=== PATIENT | female | born 1975 | race Asian ===

== ENCOUNTER 2021-06-25 01:20 | Emergency (ER) | payer MEDICAID ==
[~2021-06-25] VITALS: Ht 165.1 cm; Wt 83.9 kg
[2021-06-25 02:28] LABS: Urine Bacteria NONE SEEN /hpf (None Seen); Urine Blood 3+ /uL (Negative); Urine Mucus FEW (None Seen); Urine Specific Gravity 1.007 (1.001-1.035); Urine WBC 143 /hpf (0 - 5); Urine WBC Clumps PRESENT /hpf (None Seen)
[2021-06-25 04:14] VITALS: BP 144/86
[2021-06-25] MEDS ORDERED: cefTRIAXone SOD 1,000 MG VL IM ONE (04:15)
[2021-06-25] MEDS ORDERED: SODIUM CHLORIDE 0.9% 1,000 ML IV ONE (04:45)
== END 2021-06-25 06:35 | disposition home or self-care (01) ==
LOC: ER 01:20
DX: N39.0 Urinary tract infection, site not specified (principal); E11.65 Type 2 diabetes mellitus with hyperglycemia
CPT/HCPCS: 81001; 82962; 96360; 96372; 99283; J0696; J7030

== ENCOUNTER → 2021-09-03 | Outpatient (CLI) | payer MEDICAID ==
[~2021-09-03] VITALS: Ht 167.6 cm; Wt 81.6 kg
[2021-09-03] VITALS (7 sets, daily range): BP systolic 106–118; BP diastolic 62–76
[~2021-09-03] MED LIST: REGENERON 1200mg/250ml NS 250 ML IV ONE
== END | disposition home or self-care (01) ==
LOC: ER 15:00
PROVIDERS: ATTEND Internal Medicine
DX: U07.1 COVID-19 (principal); E11.9 Type 2 diabetes mellitus without complications; R50.9 Fever, unspecified; R53.83 Other fatigue; R11.0 Nausea
CPT/HCPCS: J7050; M0243; Q0244

== ENCOUNTER 2022-10-24 04:48 | Emergency (ER) | payer MEDICAID ==
[~2022-10-24] VITALS: Ht 162.6 cm; Wt 68.2 kg
[2022-10-24 06:28] LABS: Basophils # (auto) 0.1 10 ^3/uL (0-0.2); Basophils % (auto) 0.5 % (0.0-2.0); Eosinophils # (auto) 0.1 10 ^3/uL (0-0.8); Eosinophils % (auto) 1.2 % (0.0-7.0); Hematocrit 43.5 % (36.0-46.0); Hemoglobin 15.4 g/dL (12.2-16.2); Lymphocytes # (auto) 2.5 10 ^3/uL (0.4-5.4); Lymphocytes % (auto) 22.9 % (10.0-50.0); Mean Corpuscular Hemoglobin 29.1 pg (28.0-32.0); Mean Corpuscular Hgb Conc. 35.3 g/dL (32.0-36.0); Mean Corpuscular Volume 82.5 fL (80.0-100.0); Monocytes # (auto) 0.5 10 ^3/uL (0-1.3); Neutrophils # (auto) 7.6 10 ^3/uL (1.6-8.6); Neutrophils % (auto) 70.4 % (37.0-80.0); Nucleated Red Blood Cells % 0.4 %; Red Blood Cells 5.28 10^6/uL (4.0-5.20); Red Cell Distribution Width 13.1 % (11.8-14.3); White Blood Cell 10.8 10^3/uL (4.4-10.8)
[2022-10-24 06:45] LABS: Albumin 4.1 g/dL (3.4-5.0); BUN/Creatinine Ratio 19.7; Calcium 9.1 mg/dL (8.5-10.1); Potassium 3.9 mmol/L (3.5-5.1)
[2022-10-24 06:48] LABS: Bilirubin, Total 0.7 mg/dL (0.2-1.0); Total Protein 7.2 g/dL (6.4-8.2)
[2022-10-24 07:09] LABS: Urine Bacteria NONE SEEN /hpf (None Seen); Urine Blood 3+ /uL (Negative); Urine Specific Gravity 1.015 (1.001-1.035); Urine WBC 139 /hpf (0 - 5)
[2022-10-24] MEDS ORDERED: NITR-87 PO ×5 (07:56→08:36)
[2022-10-24] MEDS ORDERED: cefTRIAXone SOD 1,000 MG VL IM ONE (08:00)
[2022-10-24 08:20] VITALS: BP 124/98
== END 2022-10-24 07:57 | disposition home or self-care (01) ==
LOC: ER 04:48
DX: N39.0 Urinary tract infection, site not specified (principal); E11.65 Type 2 diabetes mellitus with hyperglycemia; E03.9 Hypothyroidism, unspecified; R10.2 Pelvic and perineal pain
CPT/HCPCS: 36415; 80053; 81001; 84702; 85025; 96372; 99283; J0696

== ENCOUNTER → 2024-10-11 | Day surgery (SDC) | payer MEDICAID ==
[2024-10-05 10:56] LABS: Urine Bacteria None Seen /hpf (None Seen)
[2024-10-05 11:07] LABS: Urine Blood Negative /uL (Negative); Urine Clarity Clear (Clear); Urine Color Colorless (Yellow); Urine Protein, UAD Negative (Negative); Urine Specific Gravity 1.004 (1.001-1.035); Urine Squamous Epithelial Cell FEW /hpf (<5); Urine Urobilinogen Normal (Negative); Urine WBC < 1 /HPF (0-5); Urine pH 5.5 (5.0-9.0)
[2024-10-05 11:12] LABS: Basophils # (auto) 0 10 ^3/uL (0-0.2); Basophils % (auto) 0.7 % (0.0-2.0); Eosinophils # (auto) 0.1 10 ^3/uL (0-0.8); Hematocrit 47.3 % (36.0-46.0); Hemoglobin 16.7 g/dL (12.2-16.2); Lymphocytes # (auto) 2.6 10 ^3/uL (0.4-5.4); Lymphocytes % (auto) 36.4 % (10.0-50.0); Mean Corpuscular Hemoglobin 30.3 pg (28.0-32.0); Mean Corpuscular Hgb Conc. 35.2 g/dL (32.0-36.0); Monocytes # (auto) 0.4 10 ^3/uL (0-1.3); Monocytes % (auto) 5.1 % (0.0-12.0); Neutrophils % (auto) 55.8 % (37.0-80.0); Nucleated Red Blood Cells % 0.1 %; Platelet Count (auto) 316 10^3/uL (140-450); Red Cell Distribution Width 12.5 % (11.8-14.3); White Blood Cell 7.2 10^3/uL (4.4-10.8)
[2024-10-05 11:23] LABS: INR 0.92 (0.9-1.15); Partial Thromboplastin Time 25.9 SEC (24.5-34.5); Prothrombin Time 9.8 sec (9.3-11.8)
[2024-10-05 12:07] LABS: Alanine Aminotransferase 12 U/L (7-40); Anion Gap 10 (5-15); Bilirubin, Total 0.8 mg/dL (0.2-1.0); Blood Urea Nitrogen 14 mg/dL (9-23); Carbon Dioxide 27 mmol/L (20-31); Chloride 98 mmol/L (98-107); Total Protein 7.8 g/dL (5.7-8.2)
[2024-10-05 12:08] LABS: Albumin 5.3 g/dL (3.2-4.8); Alkaline Phosphatase 118 U/L (46-116); Aspartate Aminotransferase 10 U/L (13-40); Calcium 10.8 mg/dL (8.7-10.4); Glucose 254 mg/dL (74-106); Sodium 135 mmol/L (136-145)
[2024-10-05 12:14] LABS: BUN/Creatinine Ratio 16.5 (10.0-20.0)
[~2024-10-11] VITALS: Ht 165.1 cm; Wt 63.5 kg
[~2024-10-11] MED LIST changes: +ACAR25TA PO; +ATOR20TA PO; +GLIP10TA9 PO; +INSLISPI SC; +INSU100I33 SC; +METF-489 PO; +PANT40TA2 PO; -REGENERON 1200mg/250ml NS 250 ML IV ONE; +SEMA2INJ3 SC
[2024-10-11 09:15] VITALS: BP 117/75; PULSE 84; RESP 16; TEMP 97.2; O2SAT 98
== END | disposition home or self-care (01) ==
LOC: GI 07:54
PROVIDERS: ATTEND Internal Medicine Gastroenterology
DX: R13.10 Dysphagia, unspecified (principal); Z53.8 Procedure and treatment not carried out for other reasons; E11.9 Type 2 diabetes mellitus without complications; E03.9 Hypothyroidism, unspecified; Z79.4 Long term (current) use of insulin
CPT/HCPCS: 36415; 80053; 81001; 82962; 84702; 85025; 85610; 85730

== ENCOUNTER 2024-12-04 13:42 | Inpatient (IN) | payer MEDICAID ==
[~2024-12-04] VITALS: Ht 165.1 cm; Wt 65.0 kg
--- NOTE | 2024-12-04 15:37 | ED.PDOC ---
History of Present Illness HPI Comments 49 year old female presents to the ED with a chief complaint of generalized weakness onset today. Patient states she woke up today experiencing generalized weakness, nausea, vomiting, bright yellow. Patient checked BG, was 287. She has not been able to eat or drink due to symptoms. PMHx DM. Denies chest pain, shortness of breath, diarrhea, abdominal pain, dysuria, hematuria. No other symptoms or modifying factors present at this time. Chief Complaint: General Weakness Time Seen by MD: 15:30 Primary Care Provider: [facility] Reviewed Notes: Medications, Allergies Allergies: Coded Allergies: NO KNOWN ALLERGIES (Unverified , 06/25/21) Home Meds Reported Medications Atorvastatin Calcium (Lipitor) 20 Mg Tab, 20 MG PO HS, TAB 10/05/24 Acarbose (Acarbose) 25 Mg Tab, 15 MG PO TID, TAB 10/05/24 Metformin Hydrochloride (METFORMIN HCL ER) 500 Mg Tab, 500 MG PO HS, TAB 10/05/24 Glipizide (Glipizide) 10 Mg Tab, 10 MG PO BID, TAB 10/05/24 Semaglutide (Ozempic) 2 Mg/3 Ml Inj, 2 MG SC QWEEKLY, INJ 10/05/24 Insulin Degludec (Tresiba) 100 Unit/Ml Inj, 46 UNIT SC HS, INJ 10/05/24 Insulin Lispro (Human) (Humalog) 100 Unit/Ml Inj, 15 UNIT SC TID, INJ 10/05/24 Pantoprazole Sodium Sesquihydr (Protonix) 40 Mg Tab, 40 MG PO DAILY, #30 TAB 10/05/24 Information Source: Patient, Spouse Mode of Arrival: Ambulatory Severity: Moderate Timing: Hours Duration: Since onset Prehospital treatment: None Past Medical History PAST MEDICAL HISTORY: DM, Thyroid, UTI'S Surgical History: Denies all surgeries [employer] ATTENDANT History: Denies all [employer]ATION ATTENDANT Hx Family History Family History: Unknown Social History Smoker: Non-Smoker Alcohol: Denies ETOH Use Drugs: Denies Drug Use Lives In: Home Constitutional: reports: weakness; denies: chills, diaphoresis, fatigue, fever, malaise, sweats, others EENTM: denies: blurred vision, double vision, ear bleeding, ear discharge, ear drainage, ear pain, ear ringing, eye pain, eye redness, hearing loss, mouth pain, mouth swelling, nasal discharge, nose bleeding, nose congestion, nose pain, photophobia, tearing, throat pain, throat swelling, voice changes, others Respiratory: denies: cough, hemoptysis, orthopnea, SOB at rest, shortness of breath, SOB with excertion, stridor, wheezing, others Cardiovascular: denies: chest pain, dizzy spells, diaphoresis, Dyspnea on exertion, edema, irregular heart beat, left arm pain, lightheadedness, palpitations, PND, syncope, others Gastrointestinal: reports: nausea, vomiting; denies: abdomen distended, abdominal pain, blood streaked bowels, constipated, diarrhea, dysphagia, difficulty swallowing, hematemesis, melena, poor appetite, poor fluid intake, rectal bleeding, rectal pain, others Genitourinary: denies: abnormal vagina bleeding, burning, dyspareunia, dysuria, flank pain, frequency, hematuria, incontinence, pain, , vagina discharge, urgency, others Neurological: reports: dizziness, weakness; denies: fainting, headache, left sided numbness, left sided weakness, numbness, paresthesia, pre-existing deficit, right sided numbness, right sided weakness, seizure, speech problems, tingling, tremors, others Musculoskeletal: denies: back pain, gout, joint pain, joint swelling, muscle pain, muscle stiffness, neck pain, others Integumetry: denies: bruises, change in color, change in hair/nails, dryness, laceration, lesions, lumps, rash, wounds, others Allergic/Immunocompromised: denies: Difficulty Healing, Frequent Infections, Hives, Itching, others Hematologic/Lymphatic: denies: anemia, blood clots, easy bleeding, easy bruising, swollen glands, others Endocrine: denies: excessive hunger, excessive sweating, excessive thirst, excessive urination, flushing, intolerance to cold, intolerance to heat, unexplained weight gain, unexplained weight loss, others Psychiatric: denies: anxiety, bipolar disorder, depression, hopeless, panic disorder, schizophrenia, sleepless, suicidal, others All Other Systems: Reviewed and Negative Physical Exam General Appearance: No Apparent Distress, Normal HEENT: Normal ENT Inspection, Pharynx Normal, TMs Normal Neck: Full Range of Motion, Non-Tender, Normal, Normal Inspection Respiratory: Chest Non-Tender, Lungs Clear, No Accessory Muscle Use, No Re spiratory Distress, Normal Breath Sounds Cardiovascular: No Edema, No JVD, No Murmur, No Gallop, Normal Peripheral Pulses, Regular Rate/Rhythm Breast Exam: Deferred Gastrointestinal: No Organomegaly, Non Tender, No Pulsatile Mass, Normal Bowel Sounds, Soft Genitalia: Deferred Pelvic: Deferred Rectal: Deferred Extremities: No calf tenderness, Normal capillary refill, Normal inspection, Normal range of motion, Non-tender, No pedal edema Musculoskeletal : Apperance: Normal Neurologic: Alert, bee worker II-XII nml as Tested, No Motor Deficits, Normal Affect, Normal Mood, No Sensory Deficits Cerebellar Function: Normal Reflexes: Normal Skin: Dry, Normal Color, Warm Lymphatic: No Adenopathy Was a procedure done? Was a procedure done?: No Differential Dx Considerations may include: DKA, electrolyte abnormalities, viral syndrome X-Ray, Labs, Meds, VS Vital Signs Date Time Temp Pulse Resp B/P (MAP) Pulse Ox O2 Delivery O2 Flow Rate FiO2 12/04/24 18:07 105 17 95 Room Air* 0 21 12/04/24 17:14 97.9 105 17 119/72 (88) 95 97.9 12/04/24 16:00 69 12/04/24 14:21 97.7 122 14 108/79 (89) 99 97.7 Lab Test 12/04/24 17:29 12/04/24 17:28 12/04/24 15:51 Range/Units POC Glucose 495 *H 454 *H 70-106 mg/dl White Blood Count 17.0 H 4.4-10.8 10^3/uL Red Blood Count 6.08 H 4.0-5.20 10^6/uL Hemoglobin 17.6 H 12.2-16.2 g/dL Hematocrit 53.3 H 36.0-46.0 % Mean Corpuscular Volume 87.7 80.0-100.0 fL Mean Corpuscular Hemoglobin 29.0 28.0-32.0 pg Mean Corpuscular Hemoglobin Concent 33.1 32.0-36.0 g/dL Red Cell Distribution Width 12.6 11.8-14.3 % Platelet Count 365 140-450 10^3/uL Mean Platelet Volume 9.7 6.9-10.8 fL Neutrophils (%) (Auto) 92.2 H 37.0-80.0 % Lymphocytes (%) (Auto) 5.3 L 10.0-50.0 % Monocytes (%) (Auto) 2.0 0.0-12.0 % Eosinophils (%) (Auto) 0.0 0.0-7.0 % Basophils (%) (Auto) 0.5 0.0-2.0 % Neutrophils # (Auto) 15.6 H 1.6-8.6 10 ^3/uL Lymphocytes # (Auto) 0.9 0.4-5.4 10 ^3/uL Monocytes # (Auto) 0.3 0-1.3 10 ^3/uL Eosinophils # (Auto) 0 0-0.8 10 ^3/uL Basophils # (Auto) 0.1 0-0.2 10 ^3/uL Nucleated Red Blood Cells 0.2 % Sodium Level 136 136-145 mmol/L Potassium Level 5.6 *H 3.5-5.1 mmol/L Chloride Level 99 98-107 mmol/L Carbon Dioxide Level 18 L 20-31 mmol/L Anion Gap 19 H 5-15 Blood Urea Nitrogen 20 9-23 mg/dL Creatinine 1.25 H 0.550-1.02 mg/dL Glomerular Filtration Rate Calc 52 >90 mL/min BUN/Creatinine Ratio 16.0 10.0-20.0 Serum Glucose 474 *H 74-106 mg/dL Lactic Acid Level 2.8 *H 0.4-2.0 mmol/L Calcium Level 11.3 H 8.7-10.4 mg/dL Total Bilirubin 1.0 0.2-1.0 mg/dL Aspartate Amino Transferase (AST) 13 13-40 U/L Alanine Aminotransferase (ALT) 19 7-40 U/L Alkaline Phosphatase 145 H 46-116 U/L Total Protein 8.8 H 5.7-8.2 g/dL Albumin 5.8 H 3.2-4.8 g/dL Lipase 31 12-53 U/L Current Medications Medications (Trade) Dose Ordered Sig/Esdras Route Start Time Stop Time Status Last Admin Sodium Chloride 1,000 ml @ 1,000 mls/hr Q1H ONCE IV 12/04/24 16:45 12/04/24 17:44 DC 12/04/24 16:45 Insulin Human Regular (InsuLIN R) 10 units ONCE ONCE IV 12/04/24 16:45 4/1/25 16:59 DC 12/04/24 17:32 Time of 1ST Reevaluation: 16:00 Reevaluation 1ST: Unchanged Patient Education/Counseling: Diagnosis, Treatment, Prognosis Family Education/Counseling: Diagnosis, Treatment, Prognosis Departure 1 Departure Time of Disposition: 18:12 (Patient with DKA. We will start the protocol and admit patient for further workup) Impression: Primary Impression: Diabetic ketoacidosis Qualified Codes: E11.10 - Type 2 diabetes mellitus with ketoacidosis without coma Additional Impressions: Uncontrolled diabetes mellitus Qualified Codes: E11.65 - Type 2 diabetes mellitus with hyperglycemia Generalized weakness Disposition: 09 ADMITTED INPATIENT Admit to: ICU Condition: Critical Critical Care Note Critical Care Time?: Yes Critical care comment: DKA Authorized and Performed by: Halina Wilcox MD Total critical care time: Approximately 38 minutes Due to a high probability of clinically significant, life threatening deterioration, the patient required my highest level of preparedness to intervene emergently and I personally spent this critical care time directly and personally managing the patient. This critical care time included obtaining a history; examining the patient; pulse oximetry; ordering and review of studies; arranging urgent treatment with development of a management plan; evaluation of patient's response to treatment; frequent reassessment; and, discussions with other providers. This critical care time was performed to assess and manage the high probability of imminent, life-threatening deterioration that could result in multi-organ failure. It was exclusive of separately billable procedures and treating other patients and teaching time. Please see my other sections and the rest of the note for further information on patient assessment and treatment. Stability Stability form required: No I personally scribed for HALINA WILCOX MD ([email or web address]) on 12/04/24 at 15:37. Electronically submitted by Elisa Jacob ([email or web address]). HALINA WILCOX MD Dec 04, 2024 15:37
[2024-12-04] MEDS ORDERED: SODIUM CHLORIDE 0.9% 2,000 ML IV ONE (15:45)
[2024-12-04 16:12] LABS: Basophils # (auto) 0.1 10 ^3/uL (0-0.2); Eosinophils # (auto) 0 10 ^3/uL (0-0.8); Hematocrit 53.3 % (36.0-46.0); Hemoglobin 17.6 g/dL (12.2-16.2); Lymphocytes # (auto) 0.9 10 ^3/uL (0.4-5.4); Lymphocytes % (auto) 5.3 % (10.0-50.0)
[2024-12-04 16:13] LABS: Basophils % (auto) 0.5 % (0.0-2.0); Mean Corpuscular Hgb Conc. 33.1 g/dL (32.0-36.0); Mean Corpuscular Volume 87.7 fL (80.0-100.0); Monocytes # (auto) 0.3 10 ^3/uL (0-1.3); Neutrophils # (auto) 15.6 10 ^3/uL (1.6-8.6); Neutrophils % (auto) 92.2 % (37.0-80.0); Nucleated Red Blood Cells % 0.2 %; Platelet Count (auto) 365 10^3/uL (140-450); Red Blood Cells 6.08 10^6/uL (4.0-5.20); Red Cell Distribution Width 12.6 % (11.8-14.3)
[2024-12-04 16:23] LABS: Alanine Aminotransferase 19 U/L (7-40); Anion Gap 19 (5-15); Aspartate Aminotransferase 13 U/L (13-40); Blood Urea Nitrogen 20 mg/dL (9-23); Chloride 99 mmol/L (98-107)
[2024-12-04 16:33] LABS: Albumin 5.8 g/dL (3.2-4.8); Alkaline Phosphatase 145 U/L (46-116); Calcium 11.3 mg/dL (8.7-10.4); Carbon Dioxide 18 mmol/L (20-31); Sodium 136 mmol/L (136-145); Total Protein 8.8 g/dL (5.7-8.2)
[2024-12-04 16:38] LABS: Glucose 474 mg/dL (74-106); Lactic Acid w/Reflex 2.8 mmol/L (0.4-2.0); Potassium 5.6 mmol/L (3.5-5.1)
[2024-12-04] MEDS: SODIUM CHLORIDE 0.9% 1,000 ML IV ONE (16:45)
[2024-12-04 16:49] LABS: Lipase 31 U/L (12-53)
[2024-12-04] MEDS: InsuLIN REG 1unit/0.01ml Soln (100units/ml) IV ONE (17:32)
[2024-12-04] MEDS: ONDANSETRON HCL 4 MG/2 ML VIAL IV ONE (17:33)
[2024-12-04 18:07] VITALS: PULSE 105; RESP 17; O2SAT 95
[2024-12-04] MEDS ORDERED: DEXTROSE (50%) 50ML SYRG IV PRN (18:15)
--- NOTE | 2024-12-04 18:31 | DVH ---
CHEST RADIOGRAPH Indication: vomiting Technique: Single frontal view of the chest was obtained Comparison: None FINDINGS: Lines and Tubes: None Lungs: No focal consolidation. Pleura: No effusion. No pneumothorax. Cardiomediastinal contours: Unremarkable Bones: No acute osseous abnormality. IMPRESSION: 1. No acute cardiopulmonary disease.
--- NOTE | 2024-12-04 18:31 | DVH ---
Procedure: CT CT AB PEL WO CON-NO ORAL OR IV 12/04/2024 05:46 PM Indication: abdominal pain Comparison Study: None Technique: Axial images were obtained and reformatted in coronal and sagittal planes. All CT scans at this medical facility are performed using dose modulation techniques as appropriate to a performed e xam including the following: Automated exposure control was utilized; adjustment of the MA and/or KV according to patient size; and use of iterative reconstruction technique. CT Dose: CTDI volume is 6.3 3 mGy. Dose-length product is 308.69 mGy*cm FINDINGS: Lower Chest: Unremarkable. Hepatobiliary: Unremarkable. Spleen: Unremarkable. Pancreas: Unremarkable. Adrenal Glands: Unremarkable. tract: The kidneys are normal in size bilaterally without hydronephrosis . A 2 mm nonobstructing stone noted in the lower pole of the right kidney. The urinary bladder is unremarkable. GI tract: The stomach is grossly normal in appearance. No evidence of small bowel obstruction. Mild f ecal retention throughout the large bowel. The appendix is normal. Lymphatics: No mesenteric, retroperitoneal or periportal lymphadenopathy. Vasculature: The abdominal aorta is normal in caliber. Pelvic Organs: The IUD appears satisfactory position. Bones/soft tissues: No acute abnormality. Other: None. IMPRESSION: 1. No CT evidence of acute abnormality. 2. Mild fecal retention.
[2024-12-04] MEDS: INSULIN LANTUS (GLARGINE) 1 /0.01ml (100units/ml) SC ONE (18:36)
[2024-12-04] MEDS: INSULIN DRIP 100 UNIT/100ML 100 ML IV SCH (18:37)
[2024-12-04] MEDS: SODIUM CHLORIDE 0.9% 1,000 ML IV SCH ×2 (18:53→22:23)
[2024-12-04 19:10] LABS: Chloride 105 mmol/L (98-107); Potassium 4.4 mmol/L (3.5-5.1); Sodium 140 mmol/L (136-145)
[2024-12-04 19:11] LABS: Anion Gap 17 (5-15)
[2024-12-04 19:16] LABS: BUN/Creatinine Ratio 20.5 (10.0-20.0)
[2024-12-04 19:17] LABS: Magnesium 2.4 mg/dL (1.6-2.6)
[2024-12-04 19:19] LABS: Phosphorus 3.2 mg/dL (2.4-5.1)
[2024-12-04] MEDS: ACCU-CHEK COMFORT CURVE STRIP VI SCH (19:30)
[2024-12-04 19:45] LABS: Blood Urea Nitrogen 24 mg/dL (9-23); Calcium 10.9 mg/dL (8.7-10.4); Carbon Dioxide 18 mmol/L (20-31)
[2024-12-04 19:47] LABS: Glucose 408 mg/dL (74-106)
[2024-12-04 21:58] LABS: Urine Bacteria None Seen /hpf (None Seen)
[2024-12-04 22:25] LABS: Urine Blood Negative /uL (Negative); Urine Clarity Clear (Clear); Urine Color Light-Yellow (Yellow); Urine Protein, UAD 1+ (Negative); Urine Specific Gravity 1.031 (1.001-1.035); Urine Squamous Epithelial Cell FEW /hpf (<5); Urine Urobilinogen Normal (Negative); Urine WBC 4 /HPF (0-5); Urine pH 5.5 (5.0-9.0)
[2024-12-05] VITALS (10 sets, daily range): BP systolic 109–140; BP diastolic 65–84; PULSE 69–102; RESP 16–19; TEMP 97.5–98.2; O2SAT 92–100
[2024-12-05] MEDS: SODIUM CHLORIDE 0.9% 1,000 ML IV SCH (00:08)
[2024-12-05 00:39] LABS: Potassium 3.8 mmol/L (3.5-5.1); Sodium 142 mmol/L (136-145)
[2024-12-05 00:40] LABS: Anion Gap 10 (5-15); Calcium 9.5 mg/dL (8.7-10.4)
[2024-12-05 00:45] LABS: Blood Urea Nitrogen 20 mg/dL (9-23)
[2024-12-05 00:56] LABS: Carbon Dioxide 18 mmol/L (20-31); Chloride 114 mmol/L (98-107); Glucose 233 mg/dL (74-106)
[2024-12-05] MEDS ORDERED: ONDANSETRON HCL 4 MG/2 ML VIAL IV PRN (02:00)
--- NOTE | 2024-12-05 02:19 | DVHHPRES ---
History of Present Illness Resident Creating Document: NEVAEH JACOB RESIDENT Reason for Visit: Nausea and vomiting History of Present Illness This is a 49-year-old female with a past medical history of diabetes mellitus type 2, hyperthyroidism ( Graves disease), recurrent UTI and GERD presenting to the ED today with a chief complaint of generalized weakness that started earlier yesterday. Patient states she woke up today experiencing generalized weakness, nausea, vomiting, bright yellow. She checked her blood sugar at home and it registered 287. She has not been able to eat or drink due to symptoms thus prompting her visit. Patient denied any chest pain, shortness of breath, dizz iness any palpitation, dysuria or hematuri, but mild abdominal discomfort. In the ED, her blood glucose was 474, ABG: showed metabolic acidosis and urine positive for ketones. PMHx diabetes mellitus type II, Graves disease, recurrent UTI and GERD Past surgical history: Left mastectomy Social history: Patient lives at home with family Family history noncontributory Past Medical History See HPI Past Surgical History See HPI Family History See HPI Review of Systems Review of Systems Constitutional: Denies fever no chills no feeling of malaise, better at time of my interaction HEENT: Denies headache, ear pain, ear discharges, conjunctivitis, nasal discharge throat pain Cardiovascular: Denies chest pain, palpitation, orthopnea, PND, or pedal edema Respiratory: Denies shortness of breat cough, sputum production, hemoptysis, GI: Denies abdominal pain, nausea, vomiting, diarrhea, hematemesis, hematochezia, : Denies frequency, urgency, hematuria,; mild lower abdominal pain Endocrine: Denies unintentional weight gain or weight loss, feeling of hot flashes, Christiano: Denies easy bruising, bleeding disorders, epistaxis Musculoskeletal: Denies joint pains, muscle aches Psych: No evidence of depression, jayson, suicidal ideation Allergies: Coded Allergies: NO KNOWN ALLERGIES (Unverified , 06/25/21) Medications Current Medications Medications Dose Ordered Sig/Esdras Route Start Time Stop Time Status Last Admin Dose Admin Sodium Chloride 1,000 ml @ 150 mls/hr Q6H40M IV 12/05/24 00:15 12/05/24 00:08 150 MLS/HR Insulin Human (Reg)/Sodium Chloride 100 ml @ 0.5 mls/hr Q24H IV 12/04/24 18:15 4/1/25 18:37 6 MLS/HR Dextrose 50 ml UD PRN IV 12/04/24 18:15 Diagnostic Test (Pha) 1 strip Q90MIN 12/04/24 19:30 12/05/24 01:26 1 STRIP Insulin Glargine 15 units DAILY SC 12/05/24 10:00 Exam Vital Signs Vital Signs Date Time Temp Pulse Resp B/P (MAP) Pulse Ox O2 Delivery O2 Flow Rate FiO2 12/05/24 00:03 102 16 98 Room Air* 0 21 12/05/24 00:00 98.4 145/85 (105) 98.4 Exam General Appearance: Alert, Oriented X3, Cooperative, No acute distress HEENT: Atraumatic, PERRLA, EOMI, Mucous membrane moist/pink Respiratory: Clear to auscultation, Normal air movement Chest: Regular rate, Normal S1, Normal S2, No murmurs, no chest wall tenderness; left breast mastectomy Abdominal: NO distention, no tenderness, bowel sounds present, no scars noted Extremities: No clubbing, No cyanosis, No edema, Normal pulses, No tenderness/swelling Skin: No rashes, No breakdown, No significant lesion Neuro: Normal gait, Normal speech, Strength at 5/5 X4 ext, Normal tone, Sensation intact, Cranial nerves 3-12 NL, Reflexes 2+ Psych/Mental Status: Mental status NL, Mood NL Labs/Xrays Labs Test 12/05/24 01:26 12/05/24 00:20 12/04/24 18:32 12/04/24 18:26 Range/Units POC Glucose 197 H 70-106 mg/dl Sodium Level 142 136-145 mmol/L Potassium Level 3.8 3.5-5.1 mmol/L Chloride Level 114 H 98-107 mmol/L Carbon Dioxide Level 18 L 20-31 mmol/L Anion Gap 10 5-15 Blood Urea Nitrogen 20 9-23 mg/dL Creatinine 0.74 # 0.550-1.02 mg/dL Glomerular Filtration Rate Calc 98 >90 mL/min BUN/Creatinine Ratio 27.0 H 10.0-20.0 Serum Glucose 233 H 74-106 mg/dL Calcium Level 9.5 8.7-10.4 mg/dL Serum Osmolality 326 H 278-298 mOsm/kg Phosphorus Level 3.2 2.4-5.1 mg/dL Magnesium Level 2.4 1.6-2.6 mg/dL Beta-Hydroxybutyric Acid > 4.500 H < 0.4 mmol/L Blood Gas Specimen Type Arterial Blood Gas Sample Site Right radial Blood Gas Patient Temperature 37.0 Arterial Blood Date Drawn [id number] Arterial Blood pH 7.326 L 7.350-7.450 Arterial Blood Partial Pressure CO2 27.5 L 32.0-45.0 mmHg Arterial Blood Partial Pressure O2 83.7 83.0-108.0 mmHg Arterial Blood HCO3 14.0 L 21.0-28.0 mmol/L Arterial Blood Oxygen Saturation 95.8 94.0-98.0 % Arterial Blood Base Excess -10.0 L -2.0-3.0 mmol/L Arterial Blood Oxyhemoglobin 94.3 94.0-98.0 % Arterial Blood Carboxyhemoglobin 1.0 0.5-1.5 % Arterial Blood Methemoglobin 0.6 0.0-1.5 % Barber Test Yes Blood Gas Total Hemoglobin 17.40 H 12.0-16.0 g/dL Blood Gas Modality Room air FiO2 % 21.0 Specimen Drawn By Lactic Acid Level 2.6 *H 0.4-2.0 mmol/L Test 12/04/24 15:51 12/04/24 13:59 Range/Units White Blood Count 17.0 H 4.4-10.8 10^3/uL Red Blood Count 6.08 H 4.0-5.20 10^6/uL Hemoglobin 17.6 H 12.2-16.2 g/dL Hematocrit 53.3 H 36.0-46.0 % Mean Corpuscular Volume 87.7 80.0-100.0 fL Mean Corpuscular Hemoglobin 29.0 28.0-32.0 pg Mean Corpuscular Hemoglobin Concent 33.1 32.0-36.0 g/dL Red Cell Distribution Width 12.6 11.8-14.3 % Platelet Count 365 140-450 10^3/uL Mean Platelet Volume 9.7 6.9-10.8 fL Neutrophils (%) (Auto) 92.2 H 37.0-80.0 % Lymphocytes (%) (Auto) 5.3 L 10.0-50.0 % Monocytes (%) (Auto) 2.0 0.0-12.0 % Eosinophils (%) (Auto) 0.0 0.0-7.0 % Basophils (%) (Auto) 0.5 0.0-2.0 % Neutrophils # (Auto) 15.6 H 1.6-8.6 10 ^3/uL Lymphocytes # (Auto) 0.9 0.4-5.4 10 ^3/uL Monocytes # (Auto) 0.3 0-1.3 10 ^3/uL Eosinophils # (Auto) 0 0-0.8 10 ^3/uL Basophils # (Auto) 0.1 0-0.2 10 ^3/uL Nucleated Red Blood Cells 0.2 % Total Bilirubin 1.0 0.2-1.0 mg/dL Aspartate Amino Transferase (AST) 13 13-40 U/L Alanine Aminotransferase (ALT) 19 7-40 U/L Alkaline Phosphatase 145 H 46-116 U/L Total Protein 8.8 H 5.7-8.2 g/dL Albumin 5.8 H 3.2-4.8 g/dL Lipase 31 12-53 U/L Urine Color Light-yellow Yellow Urine Clarity Clear Clear Urine pH 5.5 5.0-9.0 Urine Specific [place] 1.031 1.001-1.035 Urine Protein 1+ H Negative Urine Ketones 4+ H Negative Urine Blood Negative Negative /uL Urine Nitrite Negative Negative Urine Bilirubin Negative Negative Urine Urobilinogen Normal Negative mg/dL Urine Leukocyte Esterase Negative Negative /uL Urine RBC <1 0 - 4 /hpf Urine Microscopic WBC 4 0-5 /HPF Urine Squamous Epithelial Cells Few <5 /hpf Urine Bacteria None seen None Seen /hpf Urine Glucose 4+ H Normal mg/dL Assessment/Plan Assessment/Plan Assessment Diabetic ketoacidosis with hyperglycemia Possible SIRS Metabolic acidosis GISSEL due to the VMN Hypercalcemia Hyperkalemia History of Graves disease, has not been on medication for over a decade History of recurrent UTI History of GERD Plan Antibody ceftriaxone possible SIRS Anion gap corrected Monitor electrolytes and replace as needed Continue IV hydration, if or when serum glucose get to 250, begin feeding whiles bridging with Lantus over with insulin. Urinalysis seems clear no evidence of infection Give pantoprazole Diet: NPO DVT prophylaxis: Patient is young and mobile Goal of care discussed for more than 20 minutes: Full code Case and plan discussed with the miller Webb Plan discussed with: Patient Date of Service: Dec 05, 2024 Billing Provider: SANIYA WEBB MD Common Visit Codes: [id number] INP/OBS CARE (HIGH) NEVAEH JACOB RESIDENT Dec 05, 2024 02:19 SANIYA WEBB MD Dec 05, 2024 14:39
[2024-12-05 02:33] LABS: Basophils # (auto) 0 10 ^3/uL (0-0.2); Basophils % (auto) 0.3 % (0.0-2.0); Eosinophils # (auto) 0 10 ^3/uL (0-0.8); Hematocrit 41.7 % (36.0-46.0); Hemoglobin 14.3 g/dL (12.2-16.2); Lymphocytes # (auto) 1.2 10 ^3/uL (0.4-5.4); Lymphocytes % (auto) 8.8 % (10.0-50.0); Mean Corpuscular Hemoglobin 29.6 pg (28.0-32.0); Mean Corpuscular Hgb Conc. 34.3 g/dL (32.0-36.0); Mean Corpuscular Volume 86.2 fL (80.0-100.0); Monocytes % (auto) 6.9 % (0.0-12.0); Neutrophils # (auto) 11.9 10 ^3/uL (1.6-8.6); Nucleated Red Blood Cells % 0.1 %; Platelet Count (auto) 226 10^3/uL (140-450); Red Blood Cells 4.83 10^6/uL (4.0-5.20); Red Cell Distribution Width 12.5 % (11.8-14.3); White Blood Cell 14.2 10^3/uL (4.4-10.8)
[2024-12-05] MEDS: PANTOPRAZOLE 40 MG/10 ML VIAL INJ IV ONE (03:47)
[2024-12-05] MEDS ORDERED: DEXTROSE (50%) 50ML SYRG IV PRN (04:45)
[2024-12-05] MEDS: INSULIN LANTUS (GLARGINE) 1 /0.01ml (100units/ml) SC SCH ×2 (07:00→10:00)
[2024-12-05] MEDS: ACCU-CHEK COMFORT CURVE STRIP VI SCH (07:19)
[2024-12-05] MEDS: InsuLIN REG 1unit/0.01ml Soln (100units/ml) SC SCH ×2 (07:24→21:00)
[2024-12-05 09:03] LABS: Potassium 3.7 mmol/L (3.5-5.1); Sodium 142 mmol/L (136-145)
[2024-12-05 09:04] LABS: Anion Gap 11 (5-15); Calcium 9.8 mg/dL (8.7-10.4); Carbon Dioxide 20 mmol/L (20-31); Chloride 111 mmol/L (98-107)
[2024-12-05 09:09] LABS: BUN/Creatinine Ratio 30.3 (10.0-20.0)
[2024-12-05 09:20] LABS: Blood Urea Nitrogen 23 mg/dL (9-23); Glucose 239 mg/dL (74-106)
[2024-12-05 09:25] LABS: T3 Total 0.56 ng/mL (0.60-1.81)
[2024-12-05 09:27] LABS: Free T4 (Free Thyroxine) 1.47 ng/dL (0.89-1.76)
[2024-12-05] MEDS: D5W/LACTATED RINGERS 1,000 ML IV SCH (10:21)
[2024-12-05] MEDS: POTASSIUM CHLORIDE 20 MEQ, LIDOCAINE 1% (LOCAL ANESTH.) 2 ML in SODIUM CHL 0.9% 100 ML IV ONE (10:22)
--- NOTE | 2024-12-05 11:47 | DVHPNRES ---
Progress Note Date Seen: Dec 05, 2024 Resident Creating Document: BHAVIK HERNANDES RESIDENT Medical Necessity Reason Pt with a Central, PICC or Fol: No Subjective Review of Systems Otilio Au is a 49-year-old female with a PMH of type 2 DM, Graves disease, recurrent UTI, GERD presented to the ED with the chief complaints of nausea, vomiting on the day of admission. Patient reported on the day of admission she started having generalized weakness associated with the nausea, vomiting, dizziness and then she checked her blood glucose at home which is around 280 and she is unable to tolerate oral feeds, which prompted her to visit ED. on arrival to ED patient blood glucose was in 474, ABG showed metabolic acidosis with urine positive for ketones and diagnosed as DKA. on my assessment patient admits that she is not taking her insulin for past 2 weeks due to fear of weight gain. PMHx diabetes mellitus type II, Graves disease, recurrent UTI and GERD PSH: Left mastectomy Social history: Patient lives at home with family. Denies smoking, alcohol and other drug abuse Family history noncontributory Home medications: Glipizide, metformin, acarbose, insulin Humalog 16 units, Tresiba 46 units, Ozempic 20 units Allergies: No known allerg Patient seen and examined at the bedside. Patient reported improvement in her symptoms since admission, reported no new complaints except generalized weakness. Patient reports: Feels better Objective vital signs Vital Sign Date Time Temp Pulse Resp B/P (MAP) Pulse Ox O2 Delivery O2 Flow Rate FiO2 12/05/24 09:00 98.2 81 16 129/73 (91) 98 98.2 12/05/24 08:00 Room Air* 0 21 Total Intake and Output 12/04/24 12/04/24 12/05/24 15:00 23:00 07:00 Intake Total 2500 ml 850 ml Output Total 0 ml Balance 2500 ml 850 ml medications Current Medications Medications Dose Ordered Sig/Esdras Route Start Time Stop Time Status Last Admin Dose Admin Insulin Glargine 15 units DAILY SC 12/05/24 10:00 Ondansetron HCl 4 mg Q4HP PRN IV 12/05/24 02:00 Diagnostic Test (Pha) 1 strip ACHS 12/05/24 07:00 12/05/24 07:19 1 STRIP Insulin Human Regular HS SC 12/05/24 22:00 Insulin Human Regular AC SC 12/05/24 07:00 12/05/24 07:24 6 UNITS Dextrose 50 ml UD PRN IV 12/05/24 04:45 Insulin Glargine 10 units QAM SC 12/05/24 07:00 Dextrose/Lactated Ringer's 1,000 ml @ 150 mls/hr Q6H40M IV 12/05/24 06:45 12/05/24 10:21 150 MLS/HR Examination Pt is lying on bed General Appearance: Alert, Oriented X3, Cooperative, Not in acute distress HEENT: Atraumatic, Mucous membranes dry Respiratory: Clear to auscultation, Normal air movement, No added sounds Cardiovascular: Regular rate, Normal S1, Normal S2, No murmurs Abdominal: Active bowel sounds, Soft, no distention, no tenderness Extremities: No edema, Normal pulses, No tenderness/swelling Skin: No Significant rash, except past surgical scars Neuro: Normal speech, sensorimotor deficits none Psych/Mental Status: Mental status NL, Mood NL Nurse was there as sharperone during examination laboratory and microbiology Laboratory Tests 12/05/24 08:35 12/05/24 02:25 Test 12/05/24 08:35 Range/Units Serum Glucose 239 H 74-106 mg/dL Labs and/or images reviewed: Labs reviewed by me, Image(s) reviewed by me Problem List/Assessment/Plan Problem List/Assessment/Plan # ? SIRS from below with EOD # Uncontrolled type 2 DM with DKA # DKA- resolving # Medication nonnadherance # Metabolic acidosis from DKA # hyperkalemia and hypercalcemia # Dehydration - patient was initially given IVF and IV insulin as DKA protocol - closely monitored lab - Anion gap corrected - bridging with the Lantus - prophylactic Rocephin - initiate diabetic diet - given counseling regarding medication adherence for 17 minutes - blood cultures # GISSEL likely VMN - monitor lab - continue IVF # GERD - Protonix # History of Graves disease Protonix No need of Lovenox since patient is ambulatory Diabetic diet Goals of care discussed with the patient for more than 27 minutes: Full code status Case discussed with Dr. Bonilla, patient and nurse Plan discussed with: Patient My Orders My Orders Orders - BHAVIK HERNANDES RESIDENT Procedure Category Date Status Time Transfer Orders XFER 12/05/24 Transmitted 08:19 Date of Service: Dec 05, 2024 Billing Provider: SAHARA AYALA MD Common Visit Codes: [id number] INP/OBS CARE(HIGH) BHAVIK HERNANDES RESIDENT Dec 05, 2024 11:47 SAHARA AYALA MD Dec 06, 2024 00:15
[2024-12-05 13:54] LABS: Potassium 3.8 mmol/L (3.5-5.1); Sodium 141 mmol/L (136-145)
[2024-12-05 13:55] LABS: Anion Gap 12 (5-15); Calcium 9.7 mg/dL (8.7-10.4); Carbon Dioxide 21 mmol/L (20-31)
[2024-12-05 13:56] LABS: Chloride 108 mmol/L (98-107)
[2024-12-05 14:00] LABS: BUN/Creatinine Ratio 42.4 (10.0-20.0)
[2024-12-05 14:01] LABS: Blood Urea Nitrogen 28 mg/dL (9-23); Glucose 249 mg/dL (74-106)
[2024-12-06] VITALS (7 sets, daily range): BP systolic 113–131; BP diastolic 65–88; PULSE 75–90; RESP 17–19; TEMP 97.5–98.2; O2SAT 95–99
[2024-12-06 06:21] LABS: Basophils # (auto) 0.1 10 ^3/uL (0-0.2); Basophils % (auto) 0.6 % (0.0-2.0); Eosinophils # (auto) 0 10 ^3/uL (0-0.8); Eosinophils % (auto) 0.4 % (0.0-7.0); Hematocrit 40.7 % (36.0-46.0); Hemoglobin 14.1 g/dL (12.2-16.2); Lymphocytes # (auto) 2.1 10 ^3/uL (0.4-5.4); Lymphocytes % (auto) 19.2 % (10.0-50.0); Mean Corpuscular Hemoglobin 29.3 pg (28.0-32.0); Mean Corpuscular Hgb Conc. 34.7 g/dL (32.0-36.0); Mean Corpuscular Volume 84.5 fL (80.0-100.0); Monocytes # (auto) 0.8 10 ^3/uL (0-1.3); Monocytes % (auto) 7.1 % (0.0-12.0); Neutrophils # (auto) 7.8 10 ^3/uL (1.6-8.6); Neutrophils % (auto) 72.7 % (37.0-80.0); Platelet Count (auto) 169 10^3/uL (140-450); Red Blood Cells 4.82 10^6/uL (4.0-5.20); White Blood Cell 10.7 10^3/uL (4.4-10.8)
[2024-12-06 06:24] LABS: Alanine Aminotransferase 12 U/L (7-40); Albumin 4.1 g/dL (3.2-4.8); Alkaline Phosphatase 93 U/L (46-116); Anion Gap 9 (5-15); BUN/Creatinine Ratio 34.4 (10.0-20.0); Blood Urea Nitrogen 21 mg/dL (9-23); Calcium 9.7 mg/dL (8.7-10.4); Carbon Dioxide 23 mmol/L (20-31); Chloride 107 mmol/L (98-107); Magnesium 2.1 mg/dL (1.6-2.6); Potassium 3.8 mmol/L (3.5-5.1); Sodium 139 mmol/L (136-145); Total Protein 6.3 g/dL (5.7-8.2)
[2024-12-06 06:28] LABS: Aspartate Aminotransferase < 8 U/L (13-40); Glucose 250 mg/dL (74-106)
[2024-12-06] MEDS ORDERED: DEXTROSE (50%) 50ML SYRG IV PRN (10:30)
[2024-12-06] MEDS ORDERED: INSULIN LISPRO (HUMAN) 100 UNITS/ML ML SC SCH (11:30)
[2024-12-06] MEDS: ACCU-CHEK COMFORT CURVE STRIP VI SCH (11:33)
[2024-12-06] MEDS: INSULIN LISPRO (HUMAN) 100 UNITS/ML ML SC SCH (11:39)
[2024-12-06] MEDS: InsuLIN REG 1unit/0.01ml Soln (100units/ml) SC SCH (11:40)
--- NOTE | 2024-12-06 12:01 | DVHPNRES ---
Progress Note Date Seen: Dec 06, 2024 Resident Creating Document: BHAVIK HERNANDES RESIDENT Medical Necessity Reason Pt with a Central, PICC or Fol: No Subjective Review of Systems Otilio Au is a 49-year-old female with a PMH of type 2 DM, Graves disease, recurrent UTI, GERD presented to the ED with the chief complaints of nausea, vomiting on the day of admission. Patient seen and examined at the bedside. Patient reported improvement in her symptoms since admission, reported no new complaints except generalized weakness. Patient reports: No new complaints Objective vital signs Vital Sign Date Time Temp Pulse Resp B/P (MAP) Pulse Ox O2 Delivery O2 Flow Rate FiO2 12/06/24 08:51 97.9 83 17 113/67 (82) 99 97.9 12/05/24 20:00 Room Air* 0 21 Total Intake and Output 12/05/24 12/05/24 12/06/24 15:00 23:00 07:00 Intake Total 4400 ml 1420 ml Output Total 1800 ml Balance 2600 ml 1420 ml medications Current Medications Medications Dose Ordered Sig/Esdras Route Start Time Stop Time Status Last Admin Dose Admin Insulin Glargine 15 units DAILY SC 12/05/24 10:00 12/06/24 09:18 15 UNITS Ondansetron HCl 4 mg Q4HP PRN IV 12/05/24 02:00 Insulin Glargine 10 units QAM SC 12/05/24 07:00 12/06/24 06:16 10 UNITS Dextrose/Lactated Ringer's 1,000 ml @ 150 mls/hr [id number] IV 12/05/24 06:45 12/06/24 03:10 150 MLS/HR Diagnostic Test (Pha) 1 strip ACHS 12/06/24 11:30 12/06/24 11:33 1 STRIP Insulin Human Regular ACHS SC 12/06/24 11:30 12/06/24 11:40 8 UNITS Dextrose 50 ml UD PRN IV 12/06/24 10:30 Insulin Human Lispro 14 units AC SC 12/06/24 11:30 12/06/24 11:39 14 UNITS Examination Pt is lying on bed General Appearance: Alert, Oriented X3, Cooperative, Not in acute distress HEENT: Atraumatic, Mucous membranes dry Respiratory: Clear to auscultation, Normal air movement, No added sounds Cardiovascular: Regular rate, Normal S1, Normal S2, No murmurs Abdominal: Active bowel sounds, Soft, no distention, no tenderness Extremities: No edema, Normal pulses, No tenderness/swelling Skin: No Significant rash, except past surgical scars Neuro: Normal speech, sensorimotor deficits none Psych/Mental Status: Mental status NL, Mood NL Nurse was there as sharperone during examination laboratory and microbiology Laboratory Tests 12/06/24 05:37 Test 12/06/24 05:37 Range/Units Serum Glucose 250 H 74-106 mg/dL Microbiology Date/Time Source Procedure Growth Status 12/05/24 02:25 Blood Blood Culture - Preliminary NO GROWTH AFTER 24 HOURS OF INCUBATION. Resulted Labs and/or images reviewed: Labs reviewed by me, Image(s) reviewed by me Problem List/Assessment/Plan Problem List/Assessment/Plan # ? SIRS from below with EOD # Uncontrolled type 2 DM with DKA # DKA- resolving # Medication nonnadherance # Metabolic acidosis from DKA # hyperkalemia and hypercalcemia # Dehydration - patient was initially given IVF and IV insulin as DKA protocol - closely monitored lab - Anion gap corrected - Currently Lantus and added lispro 14 units - prophylactic Rocephin - initiate diabetic diet - given counseling regarding medication adherence for 17 minutes - blood cultures # GISSEL likely VMN - monitor lab - continue IVF # GERD - Protonix # History of Graves disease Protonix No need of Lovenox since patient is ambulatory Diabetic diet Goals of care discussed with the patient for more than 27 minutes: Full code status Case discussed with Dr. Bonilla, patient and nurse Plan discussed with: Patient My Orders My Orders Orders - BHAVIK HERNANDES RESIDENT Procedure Category Date Status Time Consult For Nutrition NOURISH 12/06/24 Transmitted 10:27 Glucose Blood PHA 12/06/24 In Process (Accu-Chek Comfort 11:30 Insulin R (Human) PHA 12/06/24 In Process (Insulin R) 11:30 Dextrose 50% Syringe PHA 12/06/24 In Process 10:30 Transfer Orders XFER 12/06/24 Transmitted 10:29 Insulin Lispro PHA 12/06/24 In Process (Human) (Humalog) 11:30 BHAVIK HERNANDES RESIDENT Dec 06, 2024 12:01
[2024-12-07 01:00] VITALS: BP 120/73; PULSE 76; RESP 16; TEMP 98.1; O2SAT 98
[2024-12-07 05:00] VITALS: BP 111/69; PULSE 71; RESP 17; TEMP 97.9; O2SAT 100
[2024-12-07 06:35] LABS: Basophils # (auto) 0 10 ^3/uL (0-0.2); Basophils % (auto) 0.5 % (0.0-2.0); Eosinophils # (auto) 0.1 10 ^3/uL (0-0.8); Eosinophils % (auto) 1.6 % (0.0-7.0); Hematocrit 38.3 % (36.0-46.0); Hemoglobin 13.7 g/dL (12.2-16.2); Lymphocytes # (auto) 2.7 10 ^3/uL (0.4-5.4); Lymphocytes % (auto) 35.9 % (10.0-50.0); Mean Corpuscular Hemoglobin 29.9 pg (28.0-32.0); Mean Corpuscular Hgb Conc. 35.9 g/dL (32.0-36.0); Mean Corpuscular Volume 83.3 fL (80.0-100.0); Monocytes # (auto) 0.6 10 ^3/uL (0-1.3); Monocytes % (auto) 8.2 % (0.0-12.0); Neutrophils % (auto) 53.8 % (37.0-80.0); Platelet Count (auto) 132 10^3/uL (140-450); Red Cell Distribution Width 12.5 % (11.8-14.3); White Blood Cell 7.4 10^3/uL (4.4-10.8)
[2024-12-07 06:52] LABS: Alanine Aminotransferase 12 U/L (7-40); Albumin 3.9 g/dL (3.2-4.8); Alkaline Phosphatase 84 U/L (46-116); Anion Gap 9 (5-15); BUN/Creatinine Ratio 24.1 (10.0-20.0); Bilirubin, Total 1.1 mg/dL (0.2-1.0); Blood Urea Nitrogen 13 mg/dL (9-23); Calcium 9.5 mg/dL (8.7-10.4); Carbon Dioxide 26 mmol/L (20-31); Chloride 105 mmol/L (98-107); Potassium 3.5 mmol/L (3.5-5.1); Sodium 140 mmol/L (136-145)
[2024-12-07 06:54] LABS: Glucose 244 mg/dL (74-106)
[2024-12-07 06:55] LABS: Aspartate Aminotransferase < 8 U/L (13-40)
[2024-12-07 09:00] VITALS: BP 102/53; PULSE 78; RESP 18; TEMP 97.8; O2SAT 96
[2024-12-07 13:00] VITALS: BP 113/72; PULSE 84; RESP 20; TEMP 98.1; O2SAT 100
[2024-12-07 16:54] VITALS: BP 132/75; PULSE 74; RESP 20; TEMP 98; O2SAT 99
[2024-12-07 17:25] VITALS: BP 132/75; PULSE 74; RESP 20; TEMP 98; O2SAT 99
== END 2024-12-07 18:00 | disposition home or self-care (01) | DRG 420 ==
LOC: ER 13:42 → OVERFLOW 12-05 01:53 → TELE-EAST 12-05 03:28 → EAST 12-05 21:51
PROVIDERS: ADMIT Internal Medicine; ATTEND Internal Medicine
DX: E11.10 Type 2 diabetes mellitus with ketoacidosis without coma (principal); N17.0 Acute kidney failure with tubular necrosis; R65.11 Systemic inflammatory response syndrome (SIRS) of non-infectious origin with acute organ dysfunction; E86.0 Dehydration; R11.2 Nausea with vomiting, unspecified; E83.52 Hypercalcemia; E87.5 Hyperkalemia; K21.9 Gastro-esophageal reflux disease without esophagitis; Z79.84 Long term (current) use of oral hypoglycemic drugs; Z79.4 Long term (current) use of insulin
CPT/HCPCS: 36415; 36600; 71045; 74176; 80048; 80053; 81001; 82010; 82805; 82962; 83036; 83605; 83690; 83735; 83930; 84100; 84439; 84443; 84480; 85025; 87040; 96361; 96372; 96374; 99291; G0378; J1815; J2003; J2470